=== PATIENT | male | born 1955 | race Caucasian/White ===

== ENCOUNTER 2018-03-20 09:36 | Day surgery (SDC) | payer BC ==
[2018-03-20] MEDS ORDERED: PROPOFOL 500 MG/50 ML EMU IV ONE (10:45)
[2018-03-20 12:15] VITALS: BP 126/79; PULSE 70; RESP 18; TEMP 97.6; O2SAT 20
== END 2018-03-20 13:05 | disposition home or self-care (01) ==
LOC: SURG 09:36
PROVIDERS: ATTEND Surgery
DX: R10.11 Right upper quadrant pain (principal); K57.32 Diverticulitis of large intestine without perforation or abscess without bleeding; D12.0 Benign neoplasm of cecum
CPT/HCPCS: 99001; J2704